=== PATIENT | female | born 1975 | race Caucasian/White ===

== ENCOUNTER 2022-05-17 09:39 | Outpatient (CLI) | payer OTHER, SELFPAY ==
[2022-05-17 13:59] LABS: Chloride* 105 mmol/L (96-114)
[2022-05-17 14:00] LABS: Potassium* 4.3 mmol/L (3.6-5.1); Sodium* 141 mmol/L (135-149)
[2022-05-17 14:02] LABS: Aspartate Amino Transferase* 38 U/L (12-35); Bilirubin Total* 0.6 mg/dL (0.1-1.5); Blood Urea Nitrogen* 16 mg/dL (5-24); Carbon Dioxide* 32 mmol/L (20-32); Cholesterol* 190 mg/dL (90-199); Creatinine* 0.7 mg/dL (0.5-1.5); Estimated Glomerular Filt Rate 108 ml/min; Total Protein* 6.8 g/dL (6.0-8.3)
[2022-05-17 14:03] LABS: Alanine Aminotransferase* 19 U/L (4-35); Alkaline Phosphatase* 71 U/L (40-150); Glucose* 97 mg/dL (60-115); HDL Cholesterol* 46 mg/dL (>=50); LDL Cholesterol Calculated 119 mg/dL (<100); Triglycerides* 127 mg/dL (40-149)
== END 2022-05-17 09:40 | disposition home or self-care (01) ==
PROVIDERS: PCP Family Medicine; Visit Provider Family Medicine
DX: Z01.419 Encounter for gynecological examination (general) (routine) without abnormal findings (principal); E78.5 Hyperlipidemia, unspecified; E66.9 Obesity, unspecified; E13.9 Other specified diabetes mellitus without complications; Z13.29 Encounter for screening for other suspected endocrine disorder
CPT/HCPCS: 80053; 80061; 84443

== ENCOUNTER 2022-07-19 15:04 | Outpatient (CLI) | payer OTHER, SELFPAY ==
--- NOTE | 2022-07-19 15:20 | CRLHL7_ITS ---
For Patients: As a result of the Century Cures Act, medical imaging exams and procedure reports are released immediately into your electronic medical record. You may view this report before your referring provider. If you have questions, please contact your health care provider. BILATERAL SCREENING MAMMOGRAM WITH COMPUTER-AIDED DETECTION AND TOMOSYNTHESIS TECHNIQUE: CC and MLO views were obtained. These mammographic images have been obtained using full-field digital technique. These mammographic images were interpreted with the benefit of computer-aided detection. Breast Tomosynthesis was used in this interpretation. COMPARISON FILM: Baseline. FINDINGS: There are scattered areas of fibroglandular density IMPRESSION: There is no radiographic evidence for malignancy. ASSESSMENT: BI-RADS Category 1: Negative RECOMMENDATION: Routine screening mammogram in 1 year. A lay language report of this examination will be provided to the patient. Junior Lott M.D. Diagnostic Radiologist [email or web address] Transcribed: 9:56 p.m. EDGARD/Dictated by: Junior Lott MD @ 07/20/2022 8:43:00 AM (Electronically Signed)
== END 2022-07-19 15:05 | disposition home or self-care (01) ==
PROVIDERS: PCP Family Medicine; Visit Provider Family Medicine
DX: Z12.31 Encounter for screening mammogram for malignant neoplasm of breast (principal)
CPT/HCPCS: 77063; 77067

== ENCOUNTER 2024-01-16 15:44 | Outpatient (CLI) | payer OTHER, SELFPAY ==
--- NOTE | 2024-01-16 16:00 | MM_ITS ---
Patient: SHAYLA EDUARDO Facility:?[facility] Patient ID:?[id number] Site Patient ID:?[id number]. Site :?[id number] Study:?XRay-Breast Bilateral 3D W/CAD-01/16/2024 5:40:16 PM Ordering Physician:?Mac Brar Final Report: BILATERAL SCREENING MAMMOGRAM WITH COMPUTER-AIDED DETECTION AND TOMOSYNTHESIS TECHNIQUE: CC and MLO views were obtained. These mammographic images have been obtained using full-field digital technique. These mammographic images were interpreted with the benefit of computer-aided detection. Breast Tomosynthesis was used in this interpretation. COMPARISON FILM: 07/19/22. FINDINGS: There are scattered areas of fibroglandular density. IMPRESSION: There is no radiographic evidence for malignancy. ASSESSMENT: BI-RADS Category 1: Negative RECOMMENDATION: Routine screening mammogram in 1 year. A lay language report of this examination will be provided to the patient. Junior Lott M.D. Diagnostic Radiologist [email or web address] DSM/sp R& Transcribed: 5:29 p.m. SP/Dictated by: Junior Lott MD @ 01/17/2024 10:55:00 AM Signed by:?Junior Lott MD @01/17/2024 6:52:35 PM (Electronic Signature)
== END 2024-01-16 15:45 | disposition home or self-care (01) ==
LOC: MAMMO 15:45
PROVIDERS: PCP Family Medicine; Visit Provider Family Medicine
DX: Z12.31 Encounter for screening mammogram for malignant neoplasm of breast (principal)
CPT/HCPCS: 77063; 77067

== ENCOUNTER 2024-05-28 11:00 | Outpatient (CLI) | payer OTHER, SELFPAY | END 2024-05-28 11:01 | disposition home or self-care (01) | PROVIDERS: PCP Family Medicine; Visit Provider Family Medicine | DX: E78.5 Hyperlipidemia, unspecified (principal); I10 Essential (primary) hypertension | CPT/HCPCS: 80048; 80061 ==

== ENCOUNTER 2025-07-07 14:59 | Outpatient (CLI) | payer OTHER, SELFPAY ==
--- NOTE | 2025-07-07 15:20 | CRLHL7_ITS ---
For Patients: As a result of the Cures Act, medical imaging exams and procedure reports are released immediately into your electronic medical record. You may view this report before your referring provider. If you have questions, please contact your health care provider. INDICATION: BILATERAL SCREENING MAMMOGRAM, ASYMPTOMATIC 50 Y/O FEMALE COMPARISON: 01/16/2024, 07/19/2022 TECHNIQUE: Digital mammogram in CC and MLO projections including computer-aided detection (CAD) and tomosynthesis. BREAST COMPOSITION: The breasts are almost entirely fatty. FINDINGS: No suspicious findings. ASSESSMENT: BI-RADS 1 Negative RECOMMENDATION: Annual screening mammogram. A lay language report of this examination will be provided to the patient. Dictated by: Junior Lott MD @ 07/08/2025 09:28:52 (Electronically Signed)
== END 2025-07-07 15:00 | disposition home or self-care (01) ==
LOC: MAMMO 14:59
PROVIDERS: PCP Family Medicine; Visit Provider Family Medicine
DX: Z12.31 Encounter for screening mammogram for malignant neoplasm of breast (principal)
CPT/HCPCS: 77063; 77067